=== PATIENT | male | born 1985 | race Two or more races ===

== ENCOUNTER 2024-09-28 13:49 | Emergency (ER) | payer OTHER ==
[~2024-09-28] VITALS: Ht 165.1 cm; Wt 77.1 kg
[2024-09-28] MEDS ORDERED: CEFTRIAXONE SODIUM 1,000 MG VIAL IM STA (14:22)
[2024-09-28] MEDS ORDERED: CEFTRIAXONE SODIUM 1,000 MG VIAL ONE (14:33)
[2024-09-28] MEDS ORDERED: LIDOCAINE HCL 1% 10ML VIAL ONE (14:33)
== END 2024-09-28 14:51 | disposition home or self-care (01) ==
LOC: ER 13:49
DX: L02.411 Cutaneous abscess of right axilla (principal)